=== PATIENT | female | born 1940 | race American Indian/Alaskan Native ===

== ENCOUNTER 2018-01-27 17:07 | Emergency (ER) | payer SELFPAY ==
[2018-01-27 18:42] VITALS: BP 126/61
--- NOTE | 2018-01-27 21:13 | Emergency Department Report ---
HPI - General Chief Complaint: Hypoglycemia Time Seen by Provider: 01/27/18 20:30 - HPI HPI: The patient is a 77-year-old female who presents for evaluation of altered mental status and dizziness. The patient arrives via EMS, whom reports and the patient was found sitting with severely altered mental status and agitation one hour prior to arrival to the ED. The patient was found sitting to have low blood sugar less than 50. The patient was given an amp of dextrose and her blood sugar normalizes, and per EMS for altered mental status agitation resolved. The patient states that she also is expressing some mild dizziness as lightheadedness since this morning, exacerbated with position changes, improved with lying down arrest. The patient denies fever, head injury, headache , neck pain, neck stiffness, chest pain, dyspnea, abdominal pain, dysuria, back pain, diarrhea, nausea, vomiting, vision or hearing changes, smell or taste changes, paresthesias, facial drooping, slurred speech, seizure-like activity, urine or bowel incontinence or retention, or other focal neurological deficit. ED Past Medical Hx - Past Medical History Previous Medical History?: Yes Hx Hypertension: Yes Hx Dementia: Yes Additional medical history: heart disease - Social History Smoking Status: Never Smoker Substance Use Type: None ED Review of Systems ROS: Stated complaint: LOW BS/DEMENTIA Other details as noted in HPI Constitutional: denies: fever ENT: denies: throat or neck pain Respiratory: denies: cough, shortness of breath Cardiovascular: denies: chest pain Endocrine: denies unexplained weight loss or gain Gastrointestinal: denies: abdominal pain, nausea Genitourinary: denies: dysuria Musculoskeletal: denies: leg swelling Skin: denies: rash Neurological: reports AMS denies: headache Hematological/Lymphatic: denies: easy bleeding or easy bruising Psych: denies sadness or hopelessness Physical Exam - Physical Exam Vital Signs: Vital Signs 01/27/18 18:23 Temperature 97.5 F L Pulse Rate 70 Respiratory 16 Rate Blood Pressure 126/61 O2 Sat by Pulse 97 Oximetry Physical Exam: General: well-nourished, well-developed, no acute distress Head: Normocephalic, atraumatic Eyes: normal sclera, PERRL, EOM intact ENT: Mucous membranes are pale and dry Neck: No neck stiffness, no cervical adenopathy Respiratory: Breath sounds equal bilaterally, no wheezing, rales, or rhonchi Cardio: S1 and S2 present, no murmurs, rubs, gallops, capillary refill is delayed Abdomen: Normoactive bowel sounds, soft abdomen, no tenderness Chest WALL/Back: No tenderness to palpation of the chest wall, no CVA tenderness with percussion Musc: No pitting edema Skin: No rash Neuro: alert oriented x3, normal cognition, speech normal, no facial drooping, no uvula or tongue deviation on protrusion, no deficit with rotation of neck or shoulder shrug, no obvious gross motor deficit in the upper or lower extremities with flexion or extension at the shoulder, elbow, wrist, hip, knee, or ankle bilaterally, no obvious gross sensation deficit to crude touch or 2 pt discrimination, 2+ symmetric reflexes on DTR testing, no coordination deficit with [id number] or [id number] testing, Babinski downgoing Psych: Normal affect ED Course Vital Signs 01/27/18 18:23 Temperature 97.5 F L Pulse Rate 70 Respiratory 16 Rate Blood Pressure 126/61 O2 Sat by Pulse 97 Oximetry ED Medical Decision Making - Lab Data Result diagrams: 01/27/18 21:11 01/27/18 21:11 - Medical Decision Making The patient was seen and examined by myself. The patient is placed on a patient monitor and continuous pulse ox. On initial evaluation, the patient was found to be in no distress. Evaluation orders were placed. The patient's medications were checked and were absent for sulfonylurea. The patient was fed and she tolerated by mouth challenge. Lab results revealed normalization of blood sugar, and otherwise labs were unrevealing. The patient was monitored in the emergency department for greater than 4 hours without any signs of altered mental status or neurologic deficit on exam. Repeat Accu-Chek reveals blood sugar is maintained within normal limits. The patient was reevaluated and reported that she was asymptomatic and felt back to her normal baseline. The patient is stable for discharge with outpatient follow-up. The patient is given follow-up and return instructions. The patient expressed understanding and agreed with the plan. The patient is discharged in stable condition. Critical care attestation.: If time is entered above; I have spent that time in minutes in the direct care of this critically ill patient, excluding procedure time. ED Disposition Clinical Impression: Hypoglycemia due to insulin, Dehydration, Orthostatic dizziness Altered mental status, unspecified Qualifiers: Altered mental status type: delirium Qualified Code(s): R41.0 - Disorientation , unspecified Disposition: DC-01 TO HOME OR SELFCARE Is pt being admited?: No Does the pt Need Aspirin: No Condition: Stable Instructions: Diabetic Hypoglycemia (ED), Altered Mental Status (ED) Referrals: [facility] [Outside] - 3-5 Days Time of Disposition: 21:55
[2018-01-27 21:34] LABS: Basophils % (Auto) 0.3 % (0.0-1.8); Eosinophils # (Auto) 0.1 K/mm3 (0.0-0.4); Eosinophils % (Auto) 1.8 % (0.0-4.3); Hemoglobin 9.6 gm/dl (10.1-14.3); Lymphocytes # (Auto) 1.3 K/mm3 (1.2-5.4); Lymphocytes % (Auto) 23.3 % (13.4-35.0); Mean Corpuscular HGB Conc 33 % (30-34); Mean Corpuscular Hemoglobin 30 pg (28-32); Mean Corpuscular Volume 89 fl (79-97); Monocytes # (Auto) 0.5 K/mm3 (0.0-0.8); Platelet Count 203 K/mm3 (140-440); Red Blood Count 3.27 M/mm3 (3.65-5.03); Red Cell Distribution Width 14.7 % (13.2-15.2)
[2018-01-27 21:44] LABS: Calcium 9.2 mg/dL (8.4-10.2)
== END 2018-01-27 23:50 | disposition home or self-care (01) ==
LOC: ED 17:07
DX: E11.649 Type 2 diabetes mellitus with hypoglycemia without coma (principal); I10 Essential (primary) hypertension; E86.0 Dehydration; F03.90 Unspecified dementia, unspecified severity, without behavioral disturbance, psychotic disturbance, mood disturbance, and anxiety
CPT/HCPCS: 36415; 80048; 82962; 85025; 99284